=== PATIENT | female | born 1960 | race Caucasian/White ===

== ENCOUNTER 2018-04-01 23:21 | Inpatient (IN) | END 2018-04-05 14:43 | disposition home or self-care (01) | DRG 313 ==

== ENCOUNTER 2018-12-01 09:51 | Inpatient (IN) | payer OTHER ==
[~2018-12-01] VITALS: Ht 152.4 cm; Wt 66.8 kg
[~2018-12-01 09:51] MED LIST: ASPI-535 PO; DULO60CA59 PO; GABA100C14 PO; MIRT15TA5 PO; NIFE10CA PO; PANT40TA3 PO; PANT40TA4 PO; RANI150T5 PO; SIMV20TA2 PO; TRAM50TA PO; ZOLP5TAB7 PO
[2018-12-01] MEDS ORDERED: LIDOCAINE/MYLANTA 40 ML BTL PO STA (10:10)
[2018-12-01] MEDS ORDERED: ASPIRIN 81 MG TAB PO STA (10:10)
[2018-12-01] MEDS ORDERED: NITROGLYCERIN 2% 1 GM OINT PKT TD STA (10:10)
[2018-12-01] MEDS ORDERED: PANTOPRAZOLE 40 MG INJ IV ONE (10:30)
[2018-12-01] MEDS ORDERED: ACETAMINOPHEN 325 MG TAB PO PRN ×2 (12:30→18:30)
[2018-12-01] MEDS ORDERED: ONDANSETRON 4 MG INJ IV PRN (12:30)
--- NOTE | 2018-12-01 12:59 | ERD ---
ER Documentation Chief Complaint Chief Complaint CHEST PAIN THAT RADIATES TO THE NECK X 2 DAYS. VOMITED YESTERDAY HPI Patient is a 58-year-old female with hypertension, high cholesterol, and gastritis who presents with chest pain. The patient says that she has "pushing and choking" in her chest. It has been going on for the past 2 days. The patient could not sleep last night. She said that this feels similar to the previous time she was admitted and had work-up and was in the hospital for 5 days. She did have endoscopy on her last admission. She had diarrhea and diffuse abdominal pain as well. Upon review of old medical records this is the patient's third visit since 2013. ROS All systems reviewed and are negative except as per history of present illness. Medications Home Meds Active Scripts Pantoprazole* (Pantoprazole*) 40 Mg Tablet.dr, 40 MG PO DAILY@06 for 30 Days, #30 Prov:MANUELCAREYHILARY Y 04/05/18 Reported Medications Mirtazapine* (Mirtazapine*) 15 Mg Tablet, 15 MG PO DAILY, TAB 04/02/18 Duloxetine Hcl* (Duloxetine Hcl*) 60 Mg Capsule.dr, 60 MG PO DAILY, #30 CAP 04/02/18 Ranitidine Hcl* (Ranitidine Hcl*) 150 Mg Tablet, 150 MG PO HS, #30 TAB 04/02/18 Gabapentin* (Gabapentin*) 100 Mg Capsule, 100 MG PO TID, #90 CAP 04/02/18 Simvastatin (Simvastatin) 20 Mg Tablet, 20 MG PO QHS, #30 TAB 04/02/18 Zolpidem Tartrate* (Zolpidem Tartrate*) 5 Mg Tablet, 5 MG PO QHS PRN for INSOMNIA, #30 TAB 04/01/18 Tramadol Hcl* (Ultram*) 50 Mg Tablet, 50 MG PO Q6H PRN for PAIN, TAB 04/01/18 Aspirin Ec (Aspir 81) 81 Mg Tablet.dr, 81 MG PO DAILY, #30 TAB 04/01/18 Allergies Allergies: Coded Allergies: No Known Allergy (Unverified , 12/01/18) PMhx/Soc History of Surgery: Yes (LARYNX SX,CHOLECYSTECTOMY,HYSTERECTOMY -10 YRS AGO) Anesthesia Reaction: No Hx Neurological Disorder: No Hx Respiratory Disorders: No Hx Cardiac Disorders: No Hx Psychiatric Problems: Yes (DEPRESSION,ANXIETY) Hx Miscellaneous Medical Probl: Yes (HIGH CHOLESTEROL) Hx Alcohol Use: No Hx Substance Use: No Hx Tobacco Use: No Smoking Status: Never smoker FmHx Family History: coronary disease Physical Exam Vitals Vital Signs Date Temp Pulse Resp B/P (MAP) Pulse Ox O2 O2 Flow FiO2 Time Delivery Rate 12/01/18 97.9 88 20 180/79 99 09:54 (112) Physical Exam Const: Moderate distress Head: Atraumatic Eyes: Normal Conjunctiva ENT: Normal External Ears, Nose and Mouth. Neck: Full range of motion. No meningismus. Resp: Clear to auscultation bilaterally Cardio: Regular rate and rhythm, no murmurs Abd: Soft, non tender, non distended. Normal bowel sounds Skin: No petechiae or rashes Back: No midline or flank tenderness Ext: No cyanosis, or edema Neur: Awake and alert Psych: Normal Mood and Affect Result Diagram: 12/01/18 1019 12/01/18 1019 Results 24 hrs Laboratory Tests Test 12/01/18 10:19 White Blood Count 4.6 10^3/ul Red Blood Count 4.54 10^6/ul Hemoglobin 13.0 g/dl Hematocrit 39.2 % Mean Corpuscular Volume 86.3 fl Mean Corpuscular Hemoglobin 28.6 pg Mean Corpuscular Hemoglobin Concent 33.2 g/dl Red Cell Distribution Width 13.2 % Platelet Count 268 10^3/UL Mean Platelet Volume 9.9 fl Immature Granulocytes % 0.200 % Neutrophils % 50.4 % Lymphocytes % 38.7 % Monocytes % 8.7 % Eosinophils % 1.3 % Basophils % 0.7 % Nucleated Red Blood Cells % 0.0 /100WBC Immature Granulocytes # 0.010 10^3/ul Neutrophils # 2.3 10^3/ul Lymphocytes # 1.8 10^3/ul Monocytes # 0.4 10^3/ul Eosinophils # 0.1 10^3/ul Basophils # 0.0 10^3/ul Nucleated Red Blood Cells # 0.0 10^3/ul Sodium Level 142 mmol/L Potassium Level 4.0 mmol/L Chloride Level 108 mmol/L Carbon Dioxide Level 24 mmol/L Anion Gap 10 Blood Urea Nitrogen 11 mg/dl Creatinine 0.52 mg/dl Est Glomerular Filtrat Rate mL/min > 60 mL/min Glucose Level 85 mg/dl Calcium Level 9.7 mg/dl Total Bilirubin 0.5 mg/dl Direct Bilirubin 0.00 mg/dl Indirect Bilirubin 0.5 mg/dl Aspartate Amino Transf (AST/SGOT) 23 IU/L Alanine Aminotransferase (ALT/SGPT) 23 IU/L Alkaline Phosphatase 83 IU/L Troponin I < 0.012 ng/ml Total Protein 7.3 g/dl Albumin 4.2 g/dl Globulin 3.10 g/dl Albumin/Globulin Ratio 1.35 Lipase 45 U/L Current Medications Medications Dose Sig/Otis Start Time Status Last (Trade) Ordered Route PRN Stop Time Admin Dose Reason Admin Aspirin 162 mg ONCE STAT 12/01/18 DC 12/01/18 (Aspirin) PO 10:10 10:36 12/01/18 10:11 1 inch ONCE STAT 12/01/18 DC 12/01/18 Nitroglycerin TD 10:10 10:36 12/01/18 10:11 (Nitroglyceri n 2% Oint) 40 ml ONCE STAT 12/01/18 DC 12/01/18 Miscellaneous PO 10:10 10:36 Medication 12/01/18 10:11 (Gi Cocktail (2)) 40 mg ONCE ONCE 12/01/18 DC 12/01/18 Pantoprazole IV 10:30 11:13 (Protonix 12/01/18 10:31 Iv) Ondansetron 4 mg ER BRIDGE 12/01/18 HCl (Zofran PRN IV 12:30 Inj) NAUSEA/VOMITI 12/02/18 12:29 NG 650 mg ER BRIDGE 12/01/18 Acetaminophen PRN PO 12:30 (Tylenol .MILD PAIN 12/02/18 12:29 Tab) 1-3 OR TEMP Procedures/MDM EKG #1 read by me: Rate/Rhythm: Regular rate and rhythm at a rate of 86 Intervals: Normal Impression: No evidence of ischemia or arrhythmia EKG #2 read by me: Rate/Rhythm: Regular rate and rhythm at a rate of 73 Intervals: Normal Impression: No evidence of ischemia or arrhythmia Chest x-ray read by radiology. Patient is a 58-year-old female with cardiac risk factors who presents with chest pain. I am concerned for potential acute coronary syndrome. The patient was given aspirin and nitroglycerin. I doubt pneumonia, pneumothorax, pulmonary embolism, or aortic dissection. I also given GI cocktail and Protonix in case this is related to GI symptoms but I am more concerned about the acute coronary syndrome. I spoke with Dr. Manuel for admission to a telemetry observation bed. Departure Diagnosis: Primary Impression: Chest pain Chest pain type: unspecified Qualified Codes: R07.9 - Chest pain, unspecified Condition: CONCETTA Birones MD Dec 01, 2018 12:59
[2018-12-01 15:15] VITALS: BP 101/64; PULSE 63; RESP 17
[2018-12-01 15:27] VITALS: Ht 152.4 cm; Wt 66.8 kg
[2018-12-01] MEDS ORDERED: morphine 2 MG INJ IV PRN (18:30)
[2018-12-01] MEDS ORDERED: NACL 0.9% 3 ML SYG IV SCH (18:30)
[2018-12-01] MEDS: ONDANSETRON 4 MG INJ IV PRN (19:31)
[2018-12-01 20:00] VITALS: BP 109/59; PULSE 69; RESP 17
[2018-12-01] MEDS: FAMOTIDINE 20 MG INJ IV SCH (20:46)
[2018-12-02] VITALS (7 sets, daily range): BP systolic 94–140; BP diastolic 58–77; PULSE 63–73; RESP 16–17
[2018-12-02] MEDS: FAMOTIDINE 20 MG INJ IV SCH ×2 (08:04→20:03)
[2018-12-02] MEDS: ASPIRIN 81 MG TAB PO SCH (08:04)
[2018-12-02] MEDS: ENOXAPARIN 30 MG/0.3 ML SYG SC SCH (08:08)
--- NOTE | 2018-12-02 14:13 | HP ---
Date/Time of Note Date/Time of Note DATE: 12/02/18 TIME: 14:10 Assessment/Plan VTE Prophylaxis Risk score (from Ns)>0 risk: 2 SCD applied (from Nsg): Yes Pharmacological prophylaxis: LMWH Lines/Catheters IV Catheter Type (from Nrsg): Saline Lock Urinary Cath still in place: No Assessment/Plan Hospital Course 1) GERD - is better on famotidine 2) pain on swallow - try nifedipine - order barium swallow 3) abdominal pain and diarrhea - unclear etiology, possible irritable bowel syndrome - monitor for now Result Diagram: 12/02/18 0648 12/02/18 0648 Results 24hrs Laboratory Tests Test 12/01/18 16:13 12/01/18 23:12 12/02/18 06:48 Creatine Kinase 54 49 Creatine Kinase Index 1.4 1.3 Creatinine Kinase MB (Mass) 0.73 0.66 Troponin I < 0.012 < 0.012 White Blood Count 4.9 Red Blood Count 4.66 Hemoglobin 13.2 Hematocrit 40.8 Mean Corpuscular Volume 87.6 Mean Corpuscular Hemoglobin 28.3 L Mean Corpuscular Hemoglobin Concent 32.4 Red Cell Distribution Width 13.3 Platelet Count 284 Mean Platelet Volume 10.2 Immature Granulocytes % 0.200 Neutrophils % 56.3 Lymphocytes % 35.5 Monocytes % 6.6 Eosinophils % 0.8 Basophils % 0.6 Nucleated Red Blood Cells % 0.0 Immature Granulocytes # 0.010 Neutrophils # 2.7 Lymphocytes # 1.7 Monocytes # 0.3 Eosinophils # 0.0 Basophils # 0.0 Nucleated Red Blood Cells # 0.0 Sodium Level 140 Potassium Level 4.2 Chloride Level 104 Carbon Dioxide Level 28 Anion Gap 8 Blood Urea Nitrogen 10 Creatinine 0.62 Est Glomerular Filtrat Rate mL/min > 60 Glucose Level 91 Hemoglobin A1c 5.3 Calcium Level 9.6 Total Bilirubin 0.5 Direct Bilirubin 0.00 Indirect Bilirubin 0.5 Aspartate Amino Transf (AST/SGOT) 25 Alanine Aminotransferase (ALT/SGPT) 23 Alkaline Phosphatase 80 Total Protein 7.2 Albumin 4.1 Globulin 3.10 Albumin/Globulin Ratio 1.32 HPI/ROS Admit Date/Time Admit Date/Time Dec 01, 2018 at 12:21 Hx of Present Illness Patient with hypertension, hyperlipidemia comes into the hospital complaining of chest pain. Patient had similar admission 6 months ago. Patient was ruled out for acute coronary syndrome. She also had evaluation for GERD with EGD. However, she was discharged without medication. Patient has outpatient authorization to see gastroenterology but she felt bad and so she came to the ER to be admitted. PMH/Family/Social Past Medical History Medical History: high cholesterol, hypertension Medications Current Medications IV Flush (NS 3 ml) 3 ml PER PROTOCOL IV ; Start 12/01/18 at 18:30 Ondansetron HCl (Zofran Inj) 4 mg Q6H PRN IV NAUSEA/VOMITING Last administered on 12/01/18at 19:31; Admin Dose 4 MG; Start 12/01/18 at 18:30 Aspirin (Aspirin) 81 mg DAILY PO Last administered on 12/02/18 08:04; Admin Dose 81 MG; Start 12/02/18 at 09:00 Acetaminophen (Tylenol Tab) 650 mg Q6H PRN PO .PAIN 1-3 OR TEMP Last administered on 12/01/18at 19:31; Admin Dose 650 MG; Start 12/01/18 at 18:30 Morphine Sulfate (morphine) 2 mg Q4H PRN IV .PAIN 7-10; Start 12/01/18 at 18:30 Famotidine (Pepcid Iv) 20 mg Q12 IV Last administered on 12/02/18 08:04; Admin Dose 20 MG; Start 12/01/18 at 21:00 Enoxaparin Sodium (Lovenox) 30 mg DAILY SC Last administered on 12/02/18 08:08; Admin Dose 30 MG; Start 12/02/18 at 09:00 Coded Allergies: No Known Allergy (Unverified , 12/01/18) Past Surgical History Past Surgical Hx: appendectomy, cholecystectomy, other Family History Significant Family History: heart disease Social History Smoking Status: Never smoker Exam/Review of Systems Vital Signs Vitals Vital Signs Date Temp Pulse Resp B/P (MAP) Pulse Ox O2 O2 Flow FiO2 Time Delivery Rate 12/02/18 97.8 70 17 140/76 96 11:22 (97) 12/01/18 Room Air 14:22 Intake and Output 12/01/18 12/01/18 12/02/18 1515:00 23:00 07:00 IntakeIntake Total 750 ml BalanceBalance 750 ml Exam Constitutional: well developed Head: normocephalic, atraumatic Neck: supple Respiratory: clear to auscultation Cardiovascular: regular rate and rhythm Gastrointestinal: soft, non-tender Extremities: normal pulses HILARY MANUEL Dec 02, 2018 14:13
[2018-12-02] MEDS ORDERED: BARIUM SULFATE 135 ML (E-Z HD) PO ONE ×2 (17:13→17:53)
[2018-12-02] MEDS: NIFEdipine 10 MG CAP PO SCH ×2 (17:44→23:27)
[2018-12-02] MEDS ORDERED: SIMETH/SOD BICARB/CIT AC PKT (E-Z- GAS II) PO ONE (17:52)
[2018-12-02] MEDS: ONDANSETRON 4 MG INJ IV PRN (18:06)
[2018-12-03 03:31] VITALS: BP 122/72; PULSE 67; RESP 16
[2018-12-03] MEDS: NIFEdipine 10 MG CAP PO SCH ×3 (05:11→17:57)
[2018-12-03 07:09] VITALS: BP 109/73; PULSE 65; RESP 17
[2018-12-03] MEDS: FAMOTIDINE 20 MG INJ IV SCH ×2 (08:05→20:18)
[2018-12-03] MEDS: ASPIRIN 81 MG TAB PO SCH (08:05)
[2018-12-03] MEDS: ENOXAPARIN 30 MG/0.3 ML SYG SC SCH (08:18)
--- NOTE | 2018-12-03 09:59 | DS ---
Date/Time of Note Date/Time of Note DATE: 12/03/18 TIME: 09:58 Discharge Summary Admission/Discharge Info Admit Date/Time Dec 01, 2018 at 12:21 Discharge Date/Time 12/03/18 Discharge Diagnosis 1) GERD - is better on famotidine 2) pain on swallow - try nifedipine - order barium swallow 3) abdominal pain and diarrhea - unclear etiology, possible irritable bowel syndrome - monitor for now Patient Condition: Fair Consults none Procedures barium swallow Hx of Present Illness Patient with hypertension, hyperlipidemia comes into the hospital complaining of chest pain. Patient had similar admission 6 months ago. Patient was ruled out for acute coronary syndrome. She also had evaluation for GERD with EGD. However, she was discharged without medication. Patient has outpatient authorization to see gastroenterology but she felt bad and so she came to the ER to be admitted. Hospital Course Patient with hypertension, hyperlipidemia comes into the hospital complaining of chest pain. Patient had similar admission 6 months ago. Patient was ruled out for acute coronary syndrome. She also had evaluation for GERD with EGD. However, she was discharged without medication. Patient has outpatient authorization to see gastroenterology but she felt bad and so she came to the ER to be admitted. Patient had video swallow with shows evidence of severe esophageal contractions. Patient was given protonix for GERD and nifedipine for possible achalasia. She still has her symptoms but it is improved. Patient will be discharged and will follow up with gastoenterology as an outpatient. 1) GERD - is better on famotidine 2) pain on swallow - try nifedipine - order barium swallow 3) abdominal pain and diarrhea - unclear etiology, possible irritable bowel syndrome - monitor for now Home Meds Active Scripts Nifedipine* (Procardia*) 10 Mg Capsule, 10 MG PO Q6 for 30 Days, #60 CAP Prov:HILARY MANUEL 12/03/18 Pantoprazole* (Protonix*) 40 Mg Tablet., 40 MG PO DAILY for 30 Days, TAB Prov:HILARY MANUEL 12/03/18 Pantoprazole* (Pantoprazole*) 40 Mg Tablet., 40 MG PO DAILY@06 for 30 Days, #30 Prov:HILARY MANUEL Y 04/05/18 Reported Medications Mirtazapine* (Mirtazapine*) 15 Mg Tablet, 15 MG PO DAILY, TAB 04/02/18 Duloxetine Hcl* (Duloxetine Hcl*) 60 Mg Capsule.dr, 60 MG PO DAILY, #30 CAP 04/02/18 Ranitidine Hcl* (Ranitidine Hcl*) 150 Mg Tablet, 150 MG PO HS, #30 TAB 04/02/18 Gabapentin* (Gabapentin*) 100 Mg Capsule, 100 MG PO TID, #90 CAP 04/02/18 Simvastatin (Simvastatin) 20 Mg Tablet, 20 MG PO QHS, #30 TAB 04/02/18 Zolpidem Tartrate* (Zolpidem Tartrate*) 5 Mg Tablet, 5 MG PO QHS PRN for INSOMNIA, #30 TAB 04/01/18 Tramadol Hcl* (Ultram*) 50 Mg Tablet, 50 MG PO Q6H PRN for PAIN, TAB 04/01/18 Aspirin Ec (Aspir 81) 81 Mg Tablet.dr, 81 MG PO DAILY, #30 TAB 04/01/18 Primary Care Provider Not On Staff Doctor HILARY MANUEL Dec 03, 2018 09:59
[2018-12-03 11:15] VITALS: BP 116/70; PULSE 78; RESP 17
[2018-12-03 15:25] VITALS: BP 109/64; PULSE 71; RESP 17
[2018-12-03] MEDS ORDERED: PEG/ELECTROLYTES 4L BTL PO ONE (20:00)
[2018-12-03 20:28] VITALS: BP 109/66; PULSE 83; RESP 18
[2018-12-04] VITALS (10 sets, daily range): BP systolic 91–151; BP diastolic 57–77; PULSE 60–81; RESP 10–40
--- NOTE | 2018-12-04 04:51 | CONS ---
DATE OF ADMISSION: 12/03/2018 DATE OF CONSULTATION: Dear Dr. Damon: Thank you for asking me to see Mrs. Schmidt in GI consultation. As you know, patient is a 58-year-o ld [place] female. She is admitted to the hospital because of severe difficulty in swallowing, hear tburn and dysphagia. She has been having these symptoms for the past several weeks and she has histo ry of gastroesophageal reflux disease. She used to take famotidine with some relief. She also has abdominal pain and she has been having diarrhea for the past several weeks. No history of bleeding from the rectum. Barium swallow was done which showed a tertiary esophageal contractions large volume gastroesophageal reflux disease noted as well. Apparent small hiatal hernia was noted. PAST MEDICAL HISTORY: Gives history of appendectomy and cholecystectomy. No history of weight loss. No history of rectal bleeding. SOCIAL HISTORY: No history of alcoholism. REVIEW OF SYSTEM: Essentially as mentioned above. Please refer to the history and physical. PHYSICAL EXAMINATION: GENERAL: The patient is a 58-year-old [place] female who at this time she is alert, she is well fisher lt. VITAL SIGNS: She is afebrile. CARDIOVASCULAR: Normal heart sounds. RESPIRATORY: Normal breath sounds. ABDOMEN: Showed unremarkable findings. LABORATORY WORKUP: The hemoglobin is 13.2, WBC count is 4900. The potassium 4.2, bilirubin 0.5, AST 25, ALT is 23. Lipase is 45. CLINICAL IMPRESSION: The patient presenting with history of difficulty in swallowing, food getting s tuck in the esophagus, unable to get it down into the stomach, rule out severe esophageal reflux dise ase, rule out esophageal stricture. History of abdominal pain and also history of diarrhea. Etiology of diarrhea, not very clear, althou gh it could be irritable bowel syndrome. Certainly, inflammatory bowel disease, ischemic colitis, co lorectal neoplasm needs to be ruled out. Diverticulitis is a consideration. The patient never had a colonoscopy. PLAN: At this time, recommend upper endoscopy as well as lower endoscopy. Once again, doctor, thank you for this consultation. Dictated By: CHARLIE PAULINO/NTS Conf#: [id number] DID#: [id number] CC: REJI GARERTT MD;*EndCC*
[2018-12-04] MEDS: NIFEdipine 10 MG CAP PO SCH ×3 (06:00→12:22)
[2018-12-04] MEDS: ASPIRIN 81 MG TAB PO SCH (08:02)
[2018-12-04] MEDS: FAMOTIDINE 20 MG INJ IV SCH (08:12)
[2018-12-04] MEDS: ENOXAPARIN 30 MG/0.3 ML SYG SC SCH (08:20)
--- NOTE | 2018-12-04 09:25 | PREAC ---
Date/Time of Note Date/Time of Note DATE: 12/04/18 TIME: 09:23 Anesthesia Eval and Record Evaluation Time Pre-Procedure Interview DATE: 12/04/18 TIME: 09:23 Age 58 Sex female NPO: 8 hrs Preoperative diagnosis GERD diarrhea Planned procedure EGD, colonoscopy Past Medical History Past Medical History: Includes Cardio: HTN, Dyslipidemia Surgery & Anesthesia Issues No known issue Meds Anticoagulation: No Beta Natacha within 24 hr: No Reason Beta Natacha not given: Pt. not on B-Natacha Active Scripts Nifedipine* (Procardia*) 10 Mg Capsule, 10 MG PO Q6 for 30 Days, #60 CAP Prov:HILARY MANUEL Y 12/03/18 Pantoprazole* (Protonix*) 40 Mg Tablet.dr, 40 MG PO DAILY for 30 Days, TAB Prov:MARCAREYHILARY Y 12/03/18 Pantoprazole* (Pantoprazole*) 40 Mg Tablet.dr, 40 MG PO DAILY@06 for 30 Days, #30 Prov:MARHILARY Y 04/05/18 Reported Medications Mirtazapine* (Mirtazapine*) 15 Mg Tablet, 15 MG PO DAILY, TAB 04/02/18 Duloxetine Hcl* (Duloxetine Hcl*) 60 Mg Capsule.dr, 60 MG PO DAILY, #30 CAP 04/02/18 Ranitidine Hcl* (Ranitidine Hcl*) 150 Mg Tablet, 150 MG PO HS, #30 TAB 04/02/18 Gabapentin* (Gabapentin*) 100 Mg Capsule, 100 MG PO TID, #90 CAP 04/02/18 Simvastatin (Simvastatin) 20 Mg Tablet, 20 MG PO QHS, #30 TAB 04/02/18 Zolpidem Tartrate* (Zolpidem Tartrate*) 5 Mg Tablet, 5 MG PO QHS PRN for INSOMNIA, #30 TAB 04/01/18 Tramadol Hcl* (Ultram*) 50 Mg Tablet, 50 MG PO Q6H PRN for PAIN, TAB 04/01/18 Aspirin Ec (Aspir 81) 81 Mg Tablet.dr, 81 MG PO DAILY, #30 TAB 04/01/18 Current Medications IV Flush (NS 3 ml) 3 ml PER PROTOCOL IV ; Start 12/01/18 at 18:30 Ondansetron HCl (Zofran Inj) 4 mg Q6H PRN IV NAUSEA/VOMITING Last administered on 7/30/19at 18:06; Admin Dose 4 MG; Start 12/01/18 at 18:30 Aspirin (Aspirin) 81 mg DAILY PO Last administered on 12/03/18 08:05; Admin Dose 81 MG; Start 12/02/18 at 09:00 Acetaminophen (Tylenol Tab) 650 mg Q6H PRN PO .PAIN 1-3 OR TEMP Last administered on 12/01/18 19:31; Admin Dose 650 MG; Start 12/01/18 at 18:30 Morphine Sulfate (morphine) 2 mg Q4H PRN IV .PAIN 7-10; Start 12/01/18 at 18:30 Famotidine (Pepcid Iv) 20 mg Q12 IV Last administered on 12/04/18 08:12; Admin Dose 20 MG; Start 12/01/18 at 21:00 Enoxaparin Sodium (Lovenox) 30 mg DAILY SC Last administered on 12/04/18 08:20; Admin Dose 30 MG; Start 12/02/18 at 09:00 Nifedipine (Procardia) 10 mg Q6 PO Last administered on 12/03/18at 17:57; Admin Dose 10 MG; Start 12/02/18 at 18:00 Simethicone (Mylicon) 80 mg Q6H PRN PO DISTENSION/GAS/BLOATING Last administered on 12/03/18at 11:49; Admin Dose 80 MG; Start 12/02/18 at 19:00 Meds reviewed: Yes Allergies Coded Allergies: No Known Allergy (Unverified , 12/01/18) Allergies Reviewed: Yes Labs/Studies Labs Reviewed: Reviewed by anesthesiologist Result Diagram: 12/02/18 0648 12/04/18 0617 Laboratory Tests 12/04/18 06:17 test: N/A Studies: ECG Pre-procedure Exam Last vitals Vital Signs Date Temp Pulse Resp B/P (MAP) Pulse Ox O2 O2 Flow FiO2 Time Delivery Rate 12/04/18 98.5 65 18 114/71 98 Room Air 07:40 (85) Airway: Adequate mouth opening Mallampati: Mallampati I Teeth: Normal Lung: Normal Heart: Normal ASA Physical Status ASA physical status: 2 Emergency: None Planned Anesthetic General/MAC: MAC Pre-operative Attestations Prior to commencing anesthesia and surgery, the patient was re-evaluated, there was verification of: *The patient's identity *The results of appropriate recent lab work and preoperative vital signs *The above evaluation not changing prior to induction *Anesthetic plan, risk benefits, alternative and complications discussed with patient/family; questions answered; patient/family understands, accepts and wishes to proceed. MUSA MARADIAGA MD Dec 04, 2018 09:25
[2018-12-04] MEDS ORDERED: ONDANSETRON 4 MG INJ IV PRN (09:30)
[2018-12-04] MEDS ORDERED: FENTAnyl 50 MCG/ML VIAL ONE (09:32)
[2018-12-04] MEDS ORDERED: PROPOFOL 20 ML ONE ×2 (09:32→10:41)
--- NOTE | 2018-12-04 14:28 | PN ---
Date/Time of Note Date/Time of Note DATE: 12/04/18 TIME: 14:27 Assessment/Plan VTE Prophylaxis Risk score (from Ns)>0 risk: 1 SCD applied (from Ns): No SCD contraindicated: other Pharmacological prophylaxis: LMWH Lines/Catheters IV [facility]from [facility] Saline Lock Urinary Cath still in place: No Assessment/Plan Hospital Course Patient with hypertension, hyperlipidemia comes into the hospital complaining of chest pain. Patient had similar admission 6 months ago. Patient was ruled out for acute coronary syndrome. She also had evaluation for GERD with EGD. However, she was discharged without medication. Patient has outpatient authorization to see gastroenterology but she felt bad and so she came to the ER to be admitted. Patient had video swallow with shows evidence of severe esophageal contractions. Patient was given protonix for GERD and nifedipine for possible achalasia. She still has her symptoms but it is improved. Patient will be discharged and will follow up with gastoenterology as an outpatient. 1) GERD - continue on famotidine - appreciate GI input, await final recommendations 2) pain on swallow - try nifedipine 3) abdominal pain and diarrhea - unclear etiology, possible irritable bowel syndrome - monitor for now Result Diagram: 12/02/18 0648 12/04/18 0617 Results 24hrs Laboratory Tests Test 12/04/18 06:17 Potassium Level 4.0 Subjective 24 Hr Interval Summary Free Text/Dictation Patient still having epigastric pain especially when she eats. Patient had EGD and colonoscopy. Exam/Review of Systems Exam Vitals Vital Signs Date Temp Pulse Resp B/P (MAP) Pulse Ox O2 O2 Flow FiO2 Time Delivery Rate 12/04/18 97.9 63 20 130/69 95 Room Air 11:53 (89) 12/04/18 15 10:04 Intake and Output 12/03/18 12/03/18 12/04/18 1515:00 23:00 07:00 IntakeIntake Total 900 ml 510 ml BalanceBalance 900 ml 510 ml Constitutional: well developed Head: normocephalic, atraumatic Neck: supple Respiratory: clear to auscultation Cardiovascular: regular rate and rhythm Gastrointestinal: soft, non-tender Extremities: normal pulses Results Results 24hrs Laboratory Tests Test 12/04/18 06:17 Potassium Level 4.0 Medications Medication Current Medications IV Flush (NS 3 ml) 3 ml PER PROTOCOL IV ; Start 12/01/18 at 18:30 Ondansetron HCl (Zofran Inj) 4 mg Q6H PRN IV NAUSEA/VOMITING Last administered on 12/02/18 18:06; Admin Dose 4 MG; Start 12/01/18 at 18:30 Aspirin (Aspirin) 81 mg DAILY PO Last administered on 12/03/18 08:05; Admin Dose 81 MG; Start 12/02/18 at 09:00 Acetaminophen (Tylenol Tab) 650 mg Q6H PRN PO .PAIN 1-3 OR TEMP Last administered on 12/01/18 19:31; Admin Dose 650 MG; Start 12/01/18 at 18:30 Morphine Sulfate (morphine) 2 mg Q4H PRN IV .PAIN 7-10; Start 12/01/18 at 18:30 Famotidine (Pepcid Iv) 20 mg Q12 IV Last administered on 12/04/18 08:12; Admin Dose 20 MG; Start 12/01/18 at 21:00 Enoxaparin Sodium (Lovenox) 30 mg DAILY SC Last administered on 12/04/18 08:20; Admin Dose 30 MG; Start 12/02/18 at 09:00 Nifedipine (Procardia) 10 mg Q6 PO Last administered on 12/04/18 12:22; Admin Dose 10 MG; Start 12/02/18 at 18:00 Simethicone (Mylicon) 80 mg Q6H PRN PO DISTENSION/GAS/BLOATING Last administered on 12/03/18 11:49; Admin Dose 80 MG; Start 12/02/18 at 19:00 HILARY MANUEL Dec 04, 2018 14:28
--- NOTE | 2018-12-04 14:44 | DS ---
Date/Time of Note Date/Time of Note DATE: 12/04/18 TIME: 14:41 Discharge Summary Admission/Discharge Info Admit Date/Time Dec 03, 2018 at 14:07 Discharge Date/Time 12/04/18 Discharge Diagnosis 1) GERD - is better on famotidine 2) pain on swallow - try nifedipine - order barium swallow 3) abdominal pain and diarrhea - unclear etiology, possible irritable bowel syndrome - monitor for now Hx of Present Illness Patient with hypertension, hyperlipidemia comes into the hospital complaining of chest pain. Patient had similar admission 6 months ago. Patient was ruled out for acute coronary syndrome. She also had evaluation for GERD with EGD. However, she was discharged without medication. Patient has outpatient authorization to see gastroenterology but she felt bad and so she came to the ER to be admitted. Hospital Course Patient with hypertension, hyperlipidemia comes into the hospital complaining of chest pain. Patient had similar admission 6 months ago. Patient was ruled out for acute coronary syndrome. She also had evaluation for GERD with EGD. However, she was discharged without medication. Patient has outpatient authorization to see gastroenterology but she felt bad and so she came to the ER to be admitted. Patient had video swallow with shows evidence of severe esophageal contractions. Patient was given protonix for GERD and nifedipine for possible achalasia. She still has her symptoms but it is improved. Patient was still symptomatic so she wanted to see GI prior to discharge. Patient had EGD and colonoscopy which showed GERD. Patient will be sent home on protonix 40mg po bid. 1) GERD - continue on famotidine - appreciate GI input, await final recommendations 2) pain on swallow - try nifedipine 3) abdominal pain and diarrhea - unclear etiology, possible irritable bowel syndrome - monitor for now Home Meds Active Scripts Nifedipine* (Procardia*) 10 Mg Capsule, 10 MG PO Q6 for 30 Days, #60 CAP Prov:HILARY MANUEL Y 12/03/18 Pantoprazole* (Protonix*) 40 Mg Tablet., 40 MG PO DAILY for 30 Days, TAB Prov:HILARY MANUEL Y 12/03/18 Pantoprazole* (Pantoprazole*) 40 Mg Tablet., 40 MG PO DAILY@06 for 30 Days, #30 Prov:HILARY MANUEL Y 04/05/18 Reported Medications Mirtazapine* (Mirtazapine*) 15 Mg Tablet, 15 MG PO DAILY, TAB 04/02/18 Duloxetine Hcl* (Duloxetine Hcl*) 60 Mg Capsule.dr, 60 MG PO DAILY, #30 CAP 04/02/18 Ranitidine Hcl* (Ranitidine Hcl*) 150 Mg Tablet, 150 MG PO HS, #30 TAB 04/02/18 Gabapentin* (Gabapentin*) 100 Mg Capsule, 100 MG PO TID, #90 CAP 04/02/18 Simvastatin (Simvastatin) 20 Mg Tablet, 20 MG PO QHS, #30 TAB 04/02/18 Zolpidem Tartrate* (Zolpidem Tartrate*) 5 Mg Tablet, 5 MG PO QHS PRN for INSOMNIA, #30 TAB 04/01/18 Tramadol Hcl* (Ultram*) 50 Mg Tablet, 50 MG PO Q6H PRN for PAIN, TAB 04/01/18 Aspirin Ec (Aspir 81) 81 Mg Tablet.dr, 81 MG PO DAILY, #30 TAB 04/01/18 Primary Care Provider Not On Staff Doctor Pending Labs Laboratory Tests Test 12/04/18 06:17 Potassium Level 4.0 mmol/L (3.5-5.1) HILARY MANUEL Dec 04, 2018 14:44
--- NOTE | 2018-12-05 12:19 | PAC ---
Date/Time of Note Date/Time of Note DATE: 12/05/18 TIME: 12:19 Post-Anesthesia Notes Post-Anesthesia Note Last documented vital signs Vital Signs Date Temp Pulse Resp B/P (MAP) Pulse Ox O2 O2 Flow FiO2 Time Delivery Rate 12/04/18 98.0 69 20 133/77 98 Room Air 15:18 (95) 12/04/18 15 10:04 Activity: WNL Respiratory function: WNL Cardiovascular function: WNL Mental status: Baseline Pain reasonably controlled: Yes Hydration appropriate: Yes Nausea/Vomiting absent: No MUSA MARADIAGA MD Dec 05, 2018 12:19
== END 2018-12-04 16:40 | disposition home or self-care (01) | DRG 392 ==
LOC: E/R 09:51 → TEL 12:21 → EDBEDREQ 13:00 → EEVIPCON 12-03 14:07 → OBSVTOIN 12-03 14:07
PROVIDERS: ADMIT Internal Medicine; ATTEND Internal Medicine
PROC: 0DBE8ZX Excision of Large Intestine, Via Natural or Artificial Opening Endoscopic, Diagnostic (ICD-10-PCS; 2018-12-04)
PROC: 0DB58ZX Excision of Esophagus, Via Natural or Artificial Opening Endoscopic, Diagnostic (ICD-10-PCS; principal; 2018-12-04 09:30)
PROC: 0DB68ZX Excision of Stomach, Via Natural or Artificial Opening Endoscopic, Diagnostic (ICD-10-PCS; 2018-12-04 09:30)
DX: K21.0 Gastro-esophageal reflux disease with esophagitis (principal); K22.0 Achalasia of cardia; R13.10 Dysphagia, unspecified; R07.9 Chest pain, unspecified; E78.5 Hyperlipidemia, unspecified; F32.9 Major depressive disorder, single episode, unspecified; F41.9 Anxiety disorder, unspecified; I10 Essential (primary) hypertension; R10.13 Epigastric pain; K31.7 Polyp of stomach and duodenum; Z79.82 Long term (current) use of aspirin
CPT/HCPCS: 36415; 71045; 74230; 80053; 82550; 82553; 83036; 83690; 84132; 84484; 85025; 88305; 88312; 88313; 93005; 96374; G0378; C9113; J1650; J2270; J2405; J3010